=== PATIENT | female | born 1960 | race Caucasian/White ===

== ENCOUNTER 2023-10-19 11:55 | Emergency (ER) | payer OTHER ==
[~2023-10-19] VITALS: Ht 170.2 cm; Wt 68.0 kg
[2023-10-19] VITALS (9 sets, daily range): BP systolic 125–147; BP diastolic 75–87
[2023-10-19] MEDS ORDERED: Diph, Acellular Pertussis, Tet 0.5 ML/VIAL (Tdap) SDV IM ONE (12:05)
[2023-10-19 12:45] LABS: ALBUMIN 4.1 g/dL (3.2-5.0); ALKALINE PHOSPHATASE 57 u/l (38-126); ANION GAP 9 (6-22 (CALC)); BILIRUBIN, TOTAL 0.2 mg/dL (0.02-1.3); BUN 11 mg/dL (8-23); BUN/CREATININE RATIO 15 (12-20 (CALC)); CARBON DIOXIDE 23 mmol/l (22-30); CHLORIDE 109 mmol/l (95-108); CREATININE 0.7 mg/dL (0.5-1.0); ESTIMATED GFR 98 ML/MIN (>=90 (CALC)); LIPASE 147 u/l (23-300); POTASSIUM 3.8 mmol/l (3.5-5.1); SGOT/AST 29 u/l (9-36); SODIUM 137 mmol/l (137-146); TOTAL PROTEIN 6.5 g/dL (6.3-8.2)
[2023-10-19 13:03] LABS: BASO% 0.7 % (0-3); EOS% 0.5 % (0-8); HEMATOCRIT 34.3 % (37.0-47.0); HEMOGLOBIN 11.2 g/dl (12.0-16.0); IMMATURE GRANULOCYTES 0.5 % (0.0-5.0); LYMPH% 23.1 % (15-41); MEAN CELL VOLUME 91.5 fL CALC (80.0-100.0); MEAN CORPUSCULAR HGB 29.9 pG CALC (26.0-32.0); MEAN CORPUSCULAR HGB CONC 32.7 g/dL CAL (32.0-36.0); MONO% 7.1 % (2-13); NEUT# 5.02 thou/uL (2.00-7.15); NEUT% 68.1 % (42-76); RED BLOOD COUNT 3.75 mill/uL (4.20-5.60); RED CELL DISTRI WIDTH 12.6 % (11.5-15.5)
[2023-10-19] MEDS ORDERED: MORPHINE SULFATE 4 MG/ML VIAL IV ONE (13:30)
[2023-10-19] MEDS ORDERED: ONDANSETRON HCl 4 MG/2 ML SDV IV ONE (13:30)
[2023-10-19 14:28] LABS: URINE BILIRUBIN - DIPSTICK Negative (NEGATIVE); URINE BLOOD DIPSTICK Trace-intact (NEGATIVE); URINE GLUCOSE - DIPSTICK Negative (NEGATIVE); URINE KETONE 15 mg/dL (NEGATIVE); URINE LEUK ESTERASE Negative (NEGATIVE); URINE NITRITE - DIPSTICK Negative (Negative); URINE PH 6.5 (4.5-8.0); URINE PROTEIN - DIPSTICK Negative (NEG-TRACE); URINE SPECIFIC GRAVITY 1.015; URINE UROBILINOGEN - DIPSTICK 0.2 E.U./dL (0.2)
[2023-10-19 14:30] LABS: URINE COLOR Yellow
[2023-10-19] MEDS ORDERED: HYDROmorphone HCL 2 MG/AMP IV ONE (15:15)
== END 2023-10-19 15:50 | disposition short-term general hospital (02) | DRG 184 ==
LOC: ED 11:55
PROVIDERS: Family Medicine
DX: S22.42XA Multiple fractures of ribs, left side, initial encounter for closed fracture (principal); S27.0XXA Traumatic pneumothorax, initial encounter; S40.212A Abrasion of left shoulder, initial encounter; S20.212A Contusion of left front wall of thorax, initial encounter; V28.49XA Other motorcycle driver injured in noncollision transport accident in traffic accident, initial encounter
CPT/HCPCS: Q9967